=== PATIENT | male | born 1955 ===

== ENCOUNTER 2017-07-01 12:34 | Emergency (ER) | payer SELFPAY ==
[2017-07-01 12:43] VITALS: BMI 25.1
[2017-07-01 12:46] VITALS: RESP 18
[2017-07-01] MEDS ORDERED: Albuterol-Ipratrop 3 mg / 0.5 (3 ml) UD IH STA (13:08)
--- NOTE | 2017-07-01 13:15 | C.PDOC ---
History Of Present Illness 62 yo male w/o significant PMHx come in for evaluation of bodyaches, nasal congestion, runny nose, productive cough with yelloow sputum gradually developed for past week. Pt sts, " developed some ribs pain from hard cough for past few days". Otherwise, pt denies high fever, chills, headache, dizziness, drooling, neck pain, CP, SOB, wheezing, palpitation, abd. pain, V/D, rash, denies recent travel or known sick contact. At the time of evaluation, pt is awake, comfortable, not in any apparent distress Time Seen by Provider: 07/01/17 12:47 Chief Complaint (Nursing): Cough, Cold, Congestion History Per: Patient Onset/Duration Of Symptoms: Gradual Past Medical History Reviewed: Historical Data, Nursing Documentation, Vital Signs Vital Signs: Last Vital Signs Temp 98.7 F 07/01/17 12:43 Pulse 58 L 07/01/17 12:43 Resp 18 07/01/17 12:43 BP 135/79 07/01/17 12:43 Pulse Ox 98 07/01/17 13:41 Family History: States: No Known Family Hx - Social History Hx Tobacco Use: No Hx Alcohol Use: No Hx Substance Use: No - Immunization History Hx Tetanus Toxoid Vaccination: No Hx Influenza Vaccination: No Hx Pneumococcal Vaccination: No Review Of Systems Except As Marked, All Systems Reviewed And Found Negative. Constitutional: Positive for: Malaise. Negative for: Fever ENT: Positive for: Nose Discharge, Nose Congestion. Negative for: Throat Pain, Throat Swelling Cardiovascular: Negative for: Chest Pain, Light Headedness Respiratory: Positive for: Cough. Negative for: Shortness of Breath, Wheezing Gastrointestinal: Negative for: Nausea, Vomiting, Abdominal Pain, Diarrhea Genitourinary: Negative for: Dysuria, Frequency Musculoskeletal: Negative for: Neck Pain Skin: Negative for: Rash Neurological: Negative for: Altered Mental Status Physical Exam - Physical Exam Appears: Well, Non-toxic, No Acute Distress Skin: Normal Color, Warm, Dry, No Rash Head: Normacephalic Eye(s): bilateral: PERRL Ear(s): Bilateral: Normal Nose: No Flaring, Discharge (scant clear rhinorrhea B/L) Oral Mucosa: Moist Throat: Erythema (mild B/L), No Drooling Neck: Trachea Midline, Supple Cardiovascular: Rhythm Regular, No Murmur, No JVD Respiratory: No Decreased Breath Sounds, No Accessory Muscle Use, No Stridor, Wheezing (diffuse B/L, BS equal B/L) Gastrointestinal/Abdominal: Soft, No Tenderness, No Distention, No Guarding Back: No CVA Tenderness Extremity: Normal ROM, No Pedal Edema, No Deformity Neurological/Psych: Oriented x3, Normal Speech ED Course And Treatment O2 Sat by Pulse Oximetry: 98 Pulse Ox Interpretation: Normal - Radiology CXR: Interpreted by Me, Viewed By Me CXR Interpretation: Yes: Other ((+) increased interstitial markings B/L) Progress Note: On re-eval, pt reports moderate improevemnt in sx. afebrile, hemodynamicaly stable. Non-toxic. Tolerate Po well in ED. PuslEOx 98% RA. ENT: no acute findings. neck: SUpple, (-) meningeal sign. Lungs: mod impriovement in wheezing B/L, BS equal B/L. Abd: benign, (-) guarding, (-) rebound. Back: (-) CVA tenderness. CXR review (+) B/L incr interstitial markings, (-) consolidation. Pt has clinical findings c/w bronchitis, asthma. Pt advised. ref. to F/u with PMD in 2-3 days for re-eavl. return if any new chanegs. Disposition Counseled Patient/Family Regarding: Studies Performed, Diagnosis, Need For Followup, Rx Given - Disposition Referrals: [facility] [Outside] Disposition: HOME/ ROUTINE Disposition Time: 14:20 Condition: STABLE Additional Instructions: ENCOURAGE FLUIDS TAKE MEDICATION PRESCRIBED FOLLOW UP WITH PMD IN 2-3 DAYS FOR RE-EVALUATION. RETURN TO ED IF ANY WORSENING OR NEW CHANGES. Prescriptions: Albuterol HFA [Ventolin HFA 90 mcg/actuation (8 g)] 1 puff IH Q6 #1 inhaler Azithromycin [Zithromax] 250 mg PO DAILY #4 tab Benzonatate [Tessalon Perle] 100 mg PO TID #14 capsule Prednisone [Deltasone] 40 mg PO DAILY #6 tablet Instructions: Acute Bronchitis (ED), Reactive Airways Disease (ED) Forms: [employer] (Maltese) Print Language: HEBREW - Clinical Impression Clinical Impression: Bronchitis, Asthma
--- NOTE | 2017-07-01 13:41 | RAD ---
HISTORY: COMPARISON: No prior. TECHNIQUE: Chest PA and lateral FINDINGS: LINES AND TUBES: None. LUNG AND PLEURA: The lungs are well inflated. There is apparent patchy airspace disease in the right upper lobe. There is bibasilar atelectasis/mucous plugging. There are increased interstitial markings in both lungs. HEART AND MEDIASTINUM: The heart is not enlarged. There is unfolding of the aorta. The hilar and mediastinal contours are within normal limits. SKELETAL STRUCTURES: The bony structures are within normal limits for the patient's age. VISUALIZED UPPER ABDOMEN: Normal. OTHER FINDINGS: None. IMPRESSION: Findings are concerning for right upper lobe pneumonia. Follow-up to resolution is advised. Background of reactive small airway disease/viral bronchitis.
[2017-07-01] MEDS ORDERED: Albuterol-Ipratrop 3 mg / 0.5 (3 ml) UD ONE (13:55)
[2017-07-01 14:43] VITALS: BP 128/72; PULSE 62; TEMP 98.6; O2SAT 99
== END 2017-07-01 15:02 | disposition home or self-care (01) ==
LOC: C.ER 12:34
DX: J40 Bronchitis, not specified as acute or chronic (principal); J45.909 Unspecified asthma, uncomplicated